=== PATIENT | female | born 1990 | race Caucasian/White ===

== ENCOUNTER → 2017-09-28 | Outpatient (CLI) | payer BC ==
[~2017-09-28] MED LIST: ADDER PO; BCPILLS PO
== END | disposition home or self-care (01) ==
LOC: C.PAPS 11:17
PROVIDERS: ATTEND Obstetrics & Gynecology
DX: Z01.419 Encounter for gynecological examination (general) (routine) without abnormal findings (principal)

== ENCOUNTER 2020-10-01 07:57 | Inpatient (IN) ==
[2020-10-01] MEDS ORDERED: OXYTOCIN 30 UNITS/500 ML BAG IV PRN ×3 (08:29→17:21)
--- NOTE | 2020-10-01 08:31 | History & Physical Report ---
Date of Service October 01, 2020 Assessment & Plan (1) with 39 completed weeks gestation: (2) Rupture of membranes with clear amniotic fluid: fetus category one. discussed expectant management vs starting pit now as rom for 3hours. considering . Discussed need for pit if expectant management and no change. gbs negative. anticipate . History of Present Illness Chief Complaint: rom Primary Care Provider: NO PCP Patient is a 30yowf with iup at 39 weeks who presents to labor and delivery wt rom at 5:45, copious clear. Minimal contractions. no vb. +fm. uncomplicated labs--A+/ab-ri/rprnr/hepb-/hiv-/gc/ct-/gtt x 2 nl/ panorama low risk/ afp neg/ gbs negative. Allergies Allergy/AdvReac Type Severity Reaction Status Date / Time No Known Allergies Allergy Verified 09/25/20 11:46 Home Medications Medication Instructions Recorded Confirmed Type lorazepam 2 mg tablet mg PO 02/19/20 09/25/20 History prenat.vits,annette,toz-rghy-feeda 1 tab PO DAILY 02/19/20 09/25/20 History breast pump #1 ea 08/16/20 09/25/20 Rx Patient History Medical History (Updated 10/01/20 @ 08:37 by Shobha Hall MD, FACOG) Abnormal biochemical finding on screening of mother ADHD Encounter for anatomic survey HGSIL (high grade squamous intraepithelial dysplasia) Varicella Surgical History H/O LEEP H/O nasal septoplasty H/O oral surgery Status post colposcopy Family History (Updated 02/19/20 @ 15:11 by Dacia Fuller) Grandmother (Maternal) Breast cancer Grandfather (Paternal) Hypertension Grandfather (Maternal) Hypertension Social History (Updated 02/19/20 @ 15:12 by Dacia Fuller) Smoking Status: Never smoker Hx Alcohol Use: No Hx Substance Use: No marital status: marital status details: Doc Tello (31) [phone] Current Living Situation: Spouse Current Living Situation Comment: lives with spouse, 2 dogs current occupational status: employed current occupation: Associate Manager [employer] History g1--present MAILROOM CLERK History hx of leep in 2013, no stds Review of Systems All systems reviewed & are unremarkable except as noted in HPI & below Physical Exam Constitutional: WD/WN, vitals as above Gastrointestinal (Abdomen): soft, nt, nd. gravid Psychiatric: A+Ox3, euthymic affect Genitourinary: sse--+nitrazine and pool cx--ft/90/-2 toco--rare contraction efm--140s with mod variability, accels present, no decels Results & Data ([facility]) Vital Signs (Past 12 Hours) Vital Signs Pulse BP 10/01/20 08:05 106 H 118/73 Code Status & VTE Plan VTE Prophylaxis Plan VTE Prophylaxis will be ordered: No Coding Level of Care Code None Diagnoses with 39 completed weeks gestation Z3A.39 Rupture of membranes with clear amniotic fluid
[2020-10-01 09:06] LABS: Hemoglobin 13.1 g/dL (12.0-16.0); Mean Corpuscular Hemoglobin 31.2 pg (25-34); Mean Corpuscular Hgb Conc 34.5 g/dL (32-36); Mean Corpuscular Volume 90.5 fL (80-100); Mean Platelet Volume 10.4 fL (7.4-10.4); Platelet Count 342 K/uL (130-400); RDW Coefficient of Variation 13.7 % (11.5-14.5); White Blood Count 10.92 K/uL (4.8-10.8)
[2020-10-01] MEDS: LACTATED RINGER'S 1,000 ML IV PRN ×2 (09:25→12:17)
[2020-10-01] MEDS ORDERED: fentaNYL citrate 100 MCG/2 ML VIAL ONE (11:26)
[2020-10-01] MEDS ORDERED: ePHEDrine sulfate 50 MG/ML AMP ONE (11:26)
[2020-10-01] MEDS ORDERED: SODIUM CHLORIDE 0.9% INJ 10 ML VIAL ONE (11:26)
[2020-10-01] MEDS ORDERED: BUPIVACAINE 0.25% 30 ML VIAL ONE (11:26)
[2020-10-01] MEDS ORDERED: fentaNYL 2MCG/ML ROPIVACAINE 1.25MG/ML 100 ML BAG EPI ONE (11:26)
--- NOTE | 2020-10-01 11:38 | Anesthesiology Consultation ---
Date of Service October 01, 2020 Assessment & Plan (1) Encounter for pre-operative examination: Chart Review Chart Review: Acceptable Risk for Labor Epidural (COVID pending) History Height/Weight Height: 5 ft 7 in Weight: 93.894 kg Allergies Allergy/AdvReac Type Severity Reaction Status Date / Time No Known Allergies Allergy Verified 10/01/20 09:52 Medications Home Medications Medication Instructions Recorded Confirmed Last Taken prenat.vits,annette,rmt-ympj-dgjgl 1 tab PO DAILY 02/19/20 10/01/20 09/30/20 20:00 breast pump #1 ea 08/16/20 09/25/20 Unknown Active Medications Generic Name Dose Route Start Last Admin Trade Name Freq PRN Reason Stop Dose Admin Lactated Ringer's 1,000 mls @ 125 mls/hr 10/01/20 08:29 10/01/20 09:25 Lr IV 10/03/20 08:28 125 mls/hr .Q8H PRN Administration L&D Protocol Protocol Oxytocin 30 units in 500 mls @ 6 mls/hr 10/01/20 09:02 10/01/20 10:05 Pitocin IV 10/03/20 09:01 0.36 units/hr .Q24H PRN 6 mls/hr Labor Induction/Augmentation Titration Protocol 0.36 UNITS/HR Past Medical History Medical History Abnormal biochemical finding on screening of mother ADHD Encounter for anatomic survey HGSIL (high grade squamous intraepithelial dysplasia) Varicella Past Family History Family History Grandmother (Maternal) Breast cancer Grandfather (Paternal) Hypertension Grandfather (Maternal) Hypertension Past Surgical History Surgical History H/O LEEP H/O nasal septoplasty H/O oral surgery Status post colposcopy Social History Smoking Status: Never smoker Hx Alcohol Use: No Hx Substance Use: No substance use type: does not use Physical Exam Vital Signs Last Vital Signs Temp 36.4 C L 10/01/20 10:04 Pulse 95 H 10/01/20 11:09 Resp 18 10/01/20 10:04 BP 110/64 10/01/20 10:04 Pulse Ox 75 L 10/01/20 11:09 Testing Laboratory Results 10/01/20 08:38
[2020-10-01] MEDS ORDERED: ONDANSETRON INJ 2 MG/ML 2 ML VIAL IV PRN (12:11)
[2020-10-01] MEDS ORDERED: fentaNYL 2MCG/ML ROPIVACAINE 1.25MG/ML 100 ML BAG EPI PRN (12:11)
[2020-10-01] MEDS ORDERED: NALOXONE HCL 1 MG in SODIUM CHLORIDE 0.9% 1000ML 1,000 ML IV PRN (12:11)
[2020-10-01] MEDS ORDERED: NALOXONE HCL 0.4 MG/1 ML VIAL/CARP IV PRN (12:11)
[2020-10-01] MEDS ORDERED: ePHEDrine sulfate 50 MG/ML AMP IV PRN (12:11)
--- NOTE | 2020-10-01 15:32 | Labor Progress Brief Note ---
Date of Service October 01, 2020 Subjective Patient was very comfortable for awhile with epidural but starting to get some discomfort. Assessment & Plan (1) with 39 completed weeks gestation: Admission and Anticipated Discharge Date Admission Date: October 01, 2020 Fetus overall reassuring. Will begin second stage. Anticipate . Physical Exam 2 Constitutional: WD/WN, vitals as above Psychiatric: A+Ox3, euthymic affect Genitourinary: cx--c/c/+1 toco--q2-4min, pit at 2 efm--currently 150s with mod variability, accels to 170s, has had a few decels to the 80s, mostly variables that have resolved with position change and stopping the pit once. Results & Data ([facility]) Vital Signs (Past 12 Hours) Vital Signs Temp Pulse Resp BP Pulse Ox 10/01/20 15:23 97 H 99 10/01/20 15:18 91 H 99 10/01/20 15:14 92 H 114/74 10/01/20 15:13 85 99 10/01/20 15:08 83 99 10/01/20 15:03 85 99 10/01/20 14:59 83 110/62 10/01/20 14:58 87 98 10/01/20 14:53 84 99 10/01/20 14:48 90 100 10/01/20 14:44 75 120/76 10/01/20 14:43 76 100 10/01/20 14:38 80 100 10/01/20 14:33 83 100 10/01/20 14:29 86 128/87 10/01/20 14:28 87 100 10/01/20 14:23 91 H 99 10/01/20 14:18 99 H 100 10/01/20 14:14 94 H 137/83 10/01/20 14:13 95 H 100 10/01/20 14:08 92 H 100 10/01/20 14:03 88 99 10/01/20 14:00 82 20 124/73 10/01/20 13:58 81 99 10/01/20 13:53 87 100 10/01/20 13:48 89 100 10/01/20 13:45 74 127/76 10/01/20 13:43 75 99 10/01/20 13:38 90 99 10/01/20 13:33 90 100 10/01/20 13:30 84 138/71 10/01/20 13:29 16 10/01/20 13:28 83 99 10/01/20 13:23 70 98 10/01/20 13:18 89 99 10/01/20 13:15 88 131/69 10/01/20 13:13 91 H 100 10/01/20 13:08 81 98 10/01/20 13:03 80 100 10/01/20 12:59 75 123/76 10/01/20 12:58 77 99 10/01/20 12:53 81 100 10/01/20 12:48 76 99 10/01/20 12:43 78 121/73 99 10/01/20 12:40 85 115/67 10/01/20 12:38 93 H 99 10/01/20 12:33 82 119/81 98 10/01/20 12:28 95 H 105/58 L 98 10/01/20 12:23 89 121/80 99 10/01/20 12:18 94 H 99 10/01/20 12:15 37.1 C 100 H 16 108/62 10/01/20 12:13 85 106/59 L 99 10/01/20 12:11 82 106/60 10/01/20 12:10 75 110/63 10/01/20 12:08 83 98 10/01/20 12:03 87 99 10/01/20 11:58 94 H 100 10/01/20 11:53 96 H 100 10/01/20 11:09 95 H 75 L 10/01/20 10:04 36.4 C L 89 18 110/64 10/01/20 08:13 36.8 C 20 10/01/20 08:05 106 H 118/73 Coding Level of Care Code None Diagnoses with 39 completed weeks gestation Z3A.39
--- NOTE | 2020-10-01 16:24 | Labor Progress Brief Note ---
Date of Service October 01, 2020 Subjective Pushing with good effort Assessment & Plan (1) Rupture of membranes with clear amniotic fluid: Admission and Anticipated Discharge Date Admission Date: October 01, 2020 making good progress, fetus category two with variables but reassuring. moving baby well. pushing for 40 min. anticipate . Physical Exam Constitutional: WD/WN, vitals as above Psychiatric: A+Ox3, euthymic affect Genitourinary: cx--c/c/+2, small amount of caput noted with labia toco--q2-3min efm--160s with mod variability, variables with pushing. Results & Data ([facility]) Vital Signs (Past 12 Hours) Vital Signs Temp Pulse Resp BP Pulse Ox 10/01/20 16:20 106 H 91 10/01/20 16:18 101 H 98 10/01/20 16:15 93 H 131/60 10/01/20 16:13 139 H 97 10/01/20 16:08 129 H 98 10/01/20 16:03 91 H 99 10/01/20 15:59 36.8 C 101 H 20 120/58 L 81 L 10/01/20 15:58 80 99 10/01/20 15:53 132 H 95 10/01/20 15:48 95 H 99 10/01/20 15:45 88 130/60 10/01/20 15:43 105 H 99 10/01/20 15:40 114 H 89 L 10/01/20 15:38 105 H 98 10/01/20 15:33 105 H 99 10/01/20 15:29 93 H 124/74 10/01/20 15:28 95 H 98 10/01/20 15:23 97 H 99 10/01/20 15:18 91 H 99 10/01/20 15:14 92 H 114/74 10/01/20 15:13 85 99 10/01/20 15:08 83 99 10/01/20 15:03 85 99 10/01/20 14:59 83 18 110/62 10/01/20 14:58 87 98 10/01/20 14:53 84 99 10/01/20 14:48 90 100 10/01/20 14:44 75 120/76 10/01/20 14:43 76 100 10/01/20 14:38 80 100 10/01/20 14:33 83 100 10/01/20 14:29 86 128/87 10/01/20 14:28 87 100 10/01/20 14:23 91 H 99 10/01/20 14:18 99 H 100 10/01/20 14:14 94 H 137/83 10/01/20 14:13 95 H 100 10/01/20 14:08 92 H 100 10/01/20 14:03 88 99 10/01/20 14:00 82 20 124/73 10/01/20 13:58 81 99 10/01/20 13:53 87 100 10/01/20 13:48 89 100 10/01/20 13:45 74 127/76 10/01/20 13:43 75 99 10/01/20 13:38 90 99 10/01/20 13:33 90 100 10/01/20 13:30 84 138/71 10/01/20 13:29 16 10/01/20 13:28 83 99 10/01/20 13:23 70 98 10/01/20 13:18 89 99 10/01/20 13:15 88 131/69 10/01/20 13:13 91 H 100 10/01/20 13:08 81 98 10/01/20 13:03 80 100 10/01/20 12:59 75 123/76 10/01/20 12:58 77 99 10/01/20 12:53 81 100 10/01/20 12:48 76 99 10/01/20 12:43 78 121/73 99 10/01/20 12:40 85 115/67 10/01/20 12:38 93 H 99 10/01/20 12:33 82 119/81 98 10/01/20 12:28 95 H 105/58 L 98 10/01/20 12:23 89 121/80 99 10/01/20 12:18 94 H 99 10/01/20 12:15 37.1 C 100 H 16 108/62 10/01/20 12:13 85 106/59 L 99 10/01/20 12:11 82 106/60 10/01/20 12:10 75 110/63 10/01/20 12:08 83 98 10/01/20 12:03 87 99 10/01/20 11:58 94 H 100 10/01/20 11:53 96 H 100 10/01/20 11:09 95 H 75 L 10/01/20 10:04 36.4 C L 89 18 110/64 10/01/20 08:13 36.8 C 20 10/01/20 08:05 106 H 118/73 Coding Level of Care Code None Diagnoses Rupture of membranes with clear amniotic fluid
[2020-10-01] MEDS ORDERED: oxyCODONE/ACETAMINOPHEN 5mg/325mg TAB PO PRN (17:03)
[2020-10-01] MEDS ORDERED: ACETAMINOPHEN 325 MG TAB PO PRN (17:03)
--- NOTE | 2020-10-01 17:07 | Delivery Summary ---
Vaginal Delivery Summary Date of Service October 01, 2020 Pre-operative Diagnosis: at 39 weeks prom Post-operative Diagnosis: same Procedure: pitocin augmentation epidural second degree lac and repair EBL: 350cc Anesthesia: epidural Procedure: The patient pushed for about one hour to deliver a viable male infant in javi position. The rest of the infant was then delivered without difficulty. The baby was vigorous. The nose and mouth were bulb suctioned and the was placed in the maternal abdomen for drying and attention. Cord was clamped and cut at one minute of life. Cord blood and segment obtained. Placenta delivered spontaneous, intact with a three vessel cord. Cervix/sulci/rectum were intact. A second degree perineal laceration was repaired in the normal standard fashion. Hemostasis obtained with dilute pitocin and fundal massage. Apgars were 8/9. Mother and baby doing well at the end of the delivery. Vaginal Delivery Summary and 2nd Degree [facility] Vaginal Delivery Charge Vaginal Delivery Codes: 37408 global code for the antepartum, delivery, and post-
[2020-10-01] MEDS ORDERED: SUPERCREAM 0.870% 15 GM JAR EXT PRN (17:21)
[2020-10-01] MEDS ORDERED: HYDROCORTISONE ACETATE 25 MG SUPP PR PRN (17:21)
[2020-10-01] MEDS ORDERED: BENZOCAINE 20% AER SPR 82.5 GM CAN EXT PRN (17:21)
[2020-10-01] MEDS ORDERED: DIPHTHERIA/TETANUS/PERTUSSIS 0.5 ML SYR/VIAL IM ONE (17:21)
[2020-10-01] MEDS ORDERED: bisacodyL 10 MG SUPP PR PRN (17:21)
--- NOTE | 2020-10-01 18:16 | Anesthesia Procedure Note ---
Date of Service October 01, 2020 Anesthesia Post Epidural Note Vital Signs Vital Signs: Temp Pulse Resp BP Pulse Ox 36.8 C 87 20 121/67 98 10/01/20 15:59 10/01/20 18:14 10/01/20 15:59 10/01/20 18:14 10/01/20 16:58 Notes Mental Status: alert / awake / arousable and participated in evaluation Nausea / Vomiting: adequately controlled Pain: adequately controlled Airway Patency, RR, SpO2: stable & adequate BP & HR: stable & adequate Hydration State: stable & adequate Neuraxial Anesthesia: was administered and sensory block is resolving Anesthetic Complications: no major complications apparent Epidural: Removed without complications and With tip intact
[2020-10-01] MEDS: DOCUSATE SODIUM 100 MG CAP PO SCH (21:13)
[2020-10-01] MEDS: IBUPROFEN 600 MG TAB PO PRN (21:13)
[2020-10-02] MEDS: IBUPROFEN 600 MG TAB PO PRN ×4 (01:00→19:56)
--- NOTE | 2020-10-02 05:58 | Obstetrical Progress Note ---
Date of Service <Galdino Villanueva MD - Last Filed: 10/02/20 07:40> October 02, 2020 Assessment & Plan <Galdino Villanueva MD - Last Filed: 10/02/20 07:40> (1) state: 30 y/o s/p on 10/01/20 at 39w. A+. Rubella immune. Stable. hx HGSIL s/p LEEP. Normal pap 02/27/20. - Meeting milestones. Ambulating, eating, voiding. + flatus, no BM. - borderline tachycardia, 90s. - - pain controlled - WBC 10.92->14.93. No symptoms of infection. Will continue monitoring for such. - Hb 13.1->12.0, appropriate. - continue routine care - dispo tomorrow Subjective <Galdino Villanueva MD - Last Filed: 10/02/20 07:40> Ambulation: ambulating normally Voiding: no voiding problems Passing Gas:: Yes Diet Tolerance:: regular diet Lochia:: Moderate Feeding Type:: breast feeding Current Pain Level(1-10): 0 Doing well. Mild abd cramping, 2/10 intensity currently. Received ibuprofen x2 overnight w/ relief. + flatus, no BM yet. Mild discomfort w/ urination. Feels comfortable with dispo home either today or tomorrow. Review of Systems Denies fever, chills, sweats Denies shortness of breath, chest pain, palpitations. Denies breast pain. Denies headache or changes in vision. Denies nausea/vomiting. Denies numbness, tingling, weakness. Physical Exam <Galdino Villanueva MD - Last Filed: 10/02/20 07:40> General: Alert, oriented. No acute distress. Cardiac: Regular rate and rhythm, no murmurs/rubs/gallops. Respiratory: Clear to auscultation bilaterally, no wheezes/rales/rhonchi. No respiratory distress. Abdomen: , soft, nontender. Uterus: Please see attending documentation. Lower Extremities: Trace pedal edema. No deep calf pain. Diego's negative bilaterally. Results & Data ([facility]) <Galdino Villanueva MD - Last Filed: 10/02/20 07:40> Vital Signs (Past 12 Hours) Vital Signs Temp Pulse Pulse Resp BP BP Pulse Ox 10/02/20 04:20 36.5 C 99 H 18 126/80 96 10/02/20 00:20 36.7 C 97 H 16 119/74 97 10/01/20 20:45 36.7 C 83 17 111/73 98 10/01/20 19:44 96 H 119/66 10/01/20 19:29 109 H 114/68 10/01/20 19:14 105 H 107/58 L 10/01/20 19:00 36.8 C 18 10/01/20 18:59 118 H 126/69 10/01/20 18:44 96 H 128/64 10/01/20 18:29 86 114/58 L 10/01/20 18:14 87 121/67 10/01/20 17:59 100 H 120/57 L Medications Administered <Shobha Hall MD, FACOG - Last Filed: 10/02/20 07:41> Co-Signing Physician Notes Resident Physician Supervision Note: I interviewed and examined the patient. Discussed with Dr. Villanueva and agree with findings and plan as documented in the note. Any exceptions or clarifications a re listed here: Patient doing well. cbc is normal. Progressing normally, no concerns. Documented By: Shobha Hall MD, FACOG
[2020-10-02 06:11] LABS: Hematocrit (blood only) 35.1 % (37-47); Mean Corpuscular Hemoglobin 31.3 pg (25-34); Mean Corpuscular Hgb Conc 34.2 g/dL (32-36); Mean Corpuscular Volume 91.4 fL (80-100); Mean Platelet Volume 10.2 fL (7.4-10.4); Platelet Count 293 K/uL (130-400); RDW Standard Deviation 46.6 fL (36.4-46.3); Red Blood Count 3.84 M/uL (4.2-5.4); White Blood Count 14.93 K/uL (4.8-10.8)
[2020-10-02] MEDS: DOCUSATE SODIUM 100 MG CAP PO SCH ×2 (08:18→20:44)
[2020-10-02] MEDS: PRENATAL VITAMIN 1 TAB PO SCH (08:18)
[2020-10-02] MEDS ORDERED: bisacodyL 5 MG TABEC PO SCH (20:00)
[2020-10-03 00:59] VITALS: O2SAT 98
--- NOTE | 2020-10-03 05:06 | Obstetrical Progress Note ---
Date of Service <Galdino Villanueva MD - Last Filed: 10/03/20 07:01> October 03, 2020 Assessment & Plan <Galdino Villanueva MD - Last Filed: 10/03/20 07:01> (1) state: 30 y/o s/p on 10/01/20 at 39w, PPD2. A+. Rubella immune. Stable. hx HGSIL s/p LEEP. Normal pap 02/27/20. - Meeting milestones. Ambulating, eating, voiding, +BM. - pain is minimal - ok - continue routine care - tentative dispo home today Subjective <Galdino Villanueva MD - Last Filed: 10/03/20 07:01> Ambulation: ambulating normally Voiding: no voiding problems Passing Gas:: Yes Diet Tolerance:: regular diet Lochia:: Small (small-moderate) Feeding Type:: breast feeding Current Pain Level(1-10): 1 No complaints today other than some generalized soreness. Pain level 1-2/10. ok, improving. Comfortable w/ dispo. Review of Systems Denies fever, chills, sweats Denies shortness of breath, chest pain, palpitations. Denies breast pain. Denies dysuria. Denies headache or changes in vision. Denies nausea/vomiting. Denies numbness, tingling, weakness. Physical Exam <Galdino Villanueva MD - Last Filed: 10/03/20 07:01> General: Alert, oriented. No acute distress. Cardiac: Regular rate and rhythm, no murmurs/rubs/gallops. Respiratory: Clear to auscultation bilaterally, no wheezes/rales/rhonchi. No respiratory distress. Abdomen: , soft, nontender. Uterus: Uterine fundus firm, palpable 1cm below umbilicus. Lower Extremities: Trace LE edema. No deep calf pain. Diego's negative bilaterally. Results & Data ([facility]) <Galdino Villanueva MD - Last Filed: 10/03/20 07:01> Vital Signs (Past 12 Hours) Vital Signs Temp Pulse Resp BP Pulse Ox 10/03/20 00:05 36.6 C 90 17 130/77 98 10/02/20 19:35 36.7 C 84 16 111/74 97 Medications Administered <Rosaura Donaldson MD, FACOG - Last Filed: 10/03/20 07:45> Co-Signing Physician Notes Resident Physician Supervision Note: I was present with Dr. Villanueva during the history and exam. I discussed the case with the resident and agree with the findings and plan as documented in the note. Any exceptions or clarifications are listed here: doing well, day #2 pp. eating, voiding, ambulating, ready for discharge, instructions reviewed, f/u 6 wk pp check. Documented By: Rosaura Donaldson MD, FACOG Resident Activity Tracking <Galdino Villanueva MD - Last Filed: 10/03/20 07:01> Resident Involvement: Resident Care Provided Care Provided: OB Delivery
[2020-10-03] MEDS: PRENATAL VITAMIN 1 TAB PO SCH (09:22)
[2020-10-03] MEDS: DOCUSATE SODIUM 100 MG CAP PO SCH (09:22)
[2020-10-03] MEDS: IBUPROFEN 600 MG TAB PO PRN (09:24)
[2020-10-03 09:58] VITALS: BP 125/81; PULSE 97; TEMP 97.3
== END 2020-10-03 13:10 | disposition home or self-care (01) | DRG 807 ==
LOC: OPB 07:57 → 4S1 08:01 → 4S2 20:10 → UNDODISIN 10-03 13:10

== ENCOUNTER 2023-01-19 00:49 | Inpatient (IN) ==
[2023-01-19] MEDS ORDERED: LIDOCAINE 1% LOCAL 20 ML VIAL INFIL PRN (01:13)
[2023-01-19] MEDS ORDERED: LACTATED RINGER'S 1,000 ML IV PRN (01:13)
[2023-01-19] MEDS ORDERED: fentaNYL 2MCG/ML ROPIVACAINE 1.25MG/ML 100 ML BAG EPI PRN (01:40)
[2023-01-19] MEDS ORDERED: NALBUPHINE HCL INJ 10 MG/ML AMP IV PRN (01:40)
[2023-01-19] MEDS ORDERED: NALOXONE HCL 1 MG in SODIUM CHLORIDE 0.9% 1000ML 1,000 ML IV PRN (01:40)
[2023-01-19] MEDS ORDERED: diphenhydrAMINE 50 MG/ML VIAL IV PRN (01:40)
[2023-01-19] MEDS ORDERED: ePHEDrine sulfate 50 MG/ML AMP IV PRN (01:40)
[2023-01-19] MEDS ORDERED: ONDANSETRON INJ 2 MG/ML 2 ML VIAL IV PRN (01:40)
[2023-01-19] MEDS ORDERED: NALOXONE HCL 0.4 MG/1 ML VIAL/CARP IV PRN (01:40)
--- NOTE | 2023-01-19 01:40 | Anesthesiology Consultation ---
Date of Service January 19, 2023 Assessment & Plan Chart Review Chart Review: Acceptable Risk for Surgery and Patient NOT seen in Pre Admission Testing ASA ASA2 Proposed Anesthesia Anesthesia Type: Labor Epidural Risk / Benefits Reviewed With: PT / POA / Parent / Guardian, Accepts Plan and Informed Consent Obtained History Height/Weight Height: 5 ft 7 in Weight: 96.162 kg Allergies Allergy/AdvReac Type Severity Reaction Status Date / Time dog dander Allergy Congested Verified 01/18/23 13:35 house dust mite Allergy Congested Verified 01/18/23 13:35 pollen extracts Allergy Congested Verified 01/18/23 13:35 Medications Home Medications Medication Instructions Recorded Confirmed Last Taken prenat.vits,annette,wij-qdxz-dofin 1 tab PO DAILY 02/19/20 01/19/23 01/17/23 breast pump #1 ea 11/10/22 01/18/23 Unknown Past Medical History Medical History Abnormal biochemical finding on screening of mother ADHD Anxiety Encounter for anatomic survey Encounter for pre-operative examination Encounter for routine gynecological examination HGSIL (high grade squamous intraepithelial dysplasia) Multiple allergies with 39 completed weeks gestation Rupture of membranes with clear amniotic fluid Supervision of normal intrauterine in primigravida Varicella Exercise / Class Metabolic Activity II 4-5 Yardwork/Stairs/Walk up hill Past Family History Family History Grandmother (Maternal) Breast cancer Grandfather (Paternal) Hypertension Grandfather (Maternal) Hypertension Father Melanoma Past Surgical History Surgical History H/O LEEP H/O nasal septoplasty H/O oral surgery Status post colposcopy Past Anesthesia History No Hx of Anesthesia Complications and No Family Hx of Anesthesia Complications History of PONV No Hx of PONV and No Hx of Motion Sickness Social History Smoking Status: Never smoker Hx Alcohol Use: No Hx Substance Use: No substance use type: does not use Review of Systems denies fever/cough/ colds/ chest pain/ SOB/ ANGEL denies ANGEL Physical Exam Vital Signs Last Vital Signs Temp 36.8 C 01/19/23 01:08 Pulse 113 H 01/19/23 01:08 Resp 18 01/19/23 01:08 BP 127/58 L 01/19/23 01:08 ENMT Mouth: no TMJ abnormality and no dentition abnormality Thyromental Distance: > or= 3.5 Finger Breadths Mallampati Class: II Neck neck extension not limited Respiratory normal respiratory effort; no respiratory distress Auscultation: lungs clear to auscultation bilaterally Cardiovascular Rate/Rhythm: regular rate and regular rhythm Neurologic moves all extremities Psychiatric Orientation: alert and oriented x 3
[2023-01-19] MEDS ORDERED: ePHEDrine sulfate 50 MG/ML AMP ONE (01:41)
[2023-01-19] MEDS ORDERED: LIDOCAINE 2%/EPINEPHRINE 1:200,000 20 ML PF ONE (01:42)
[2023-01-19] MEDS ORDERED: SODIUM CHLORIDE 0.9% PF INJ 10 ML VIAL ONE (01:42)
[2023-01-19] MEDS ORDERED: BUPIVACAINE 0.25% PF 30 ML VIAL ONE (01:42)
[2023-01-19] MEDS ORDERED: fentaNYL citrate PF 100 MCG/2 ML VIAL ONE (01:42)
[2023-01-19] MEDS ORDERED: fentaNYL 2MCG/ML ROPIVACAINE 1.25MG/ML 100 ML BAG EPI ONE (01:43)
[2023-01-19 01:57] LABS: Hematocrit (blood only) 36.8 % (37.0-47.0); Hemoglobin 12.4 g/dl (12.0-16.0); Mean Corpuscular Hemoglobin 30.2 pg (25.0-34.0); Mean Corpuscular Hgb Conc 33.7 g/dL (32.0-36.0); Mean Corpuscular Volume 89.8 fL (80.0-100.0); Mean Platelet Volume 9.6 fL (9.4-12.4); Platelet Count 310 K/uL (130-400); RDW Coefficient of Variation 13.3 % (11.5-14.5); RDW Standard Deviation 43.5 fL (36.4-46.3); White Blood Count 14.21 K/ul (4.8-10.8)
--- NOTE | 2023-01-19 04:01 | History & Physical Report ---
Date of Service January 19, 2023 Assessment & Plan (1) Active labor at term: Plan pt was admitted, had iv and labs and epidural. begin 2nd stage. fhts categ 2, now categ 1, only occas variable. Admission and Anticipated Discharge Date Admission Date: January 19, 2023 History of Present Illness Chief Complaint: regular ctx Primary Care Provider: NO PCP 32yo at 39+wks ega presents to L&D with above cc. Regular contractions began about 830pm 10 and got closer and stronger. No rom. No vb. Arrived at L&D and was 5cm with regular ctx pattern requesting epidural. Comfortable now and per nurse anterior lip. PNC uncomplicated PNL rh pos, ri, gbs neg OBH: sab x 1, x 1 GYNH: nl pap, no stds, h/o LEEP 2012 Allergies Allergy/AdvReac Type Severity Reaction Status Date / Time dog dander Allergy Congested Verified 01/18/23 13:35 house dust mite Allergy Congested Verified 01/18/23 13:35 pollen extracts Allergy Congested Verified 01/18/23 13:35 Home Medications Medication Instructions Recorded Confirmed Type prenat.vits,annette,ecx-vmvg-jywow 1 tab PO DAILY 02/19/20 01/19/23 History breast pump #1 ea 11/10/22 01/18/23 Rx Patient History Medical History Abnormal biochemical finding on screening of mother ADHD Anxiety Encounter for anatomic survey Encounter for pre-operative examination Encounter for routine gynecological examination HGSIL (high grade squamous intraepithelial dysplasia) Multiple allergies with 39 completed weeks gestation Rupture of membranes with clear amniotic fluid Supervision of normal intrauterine in primigravida Varicella Surgical History H/O LEEP H/O nasal septoplasty H/O oral surgery Status post colposcopy Family History Grandmother (Maternal) Breast cancer Grandfather (Paternal) Hypertension Grandfather (Maternal) Hypertension Father Melanoma Social History (Updated 06/10/22 @ 14:38 by Sylvia Thompson) Smoking Status: Never smoker Hx Alcohol Use: No Hx Substance Use: No Preferred Language: Czech Communication Ability: Effective Buyer Internship Required: No Beliefs That Will Affect Care: None marital status: marital status details: Doc Tello (34) [phone] Current Living Situation: Spouse and Family Current Living Situation Comment: lives with spouse, child, 1 dog. current occupational status: employed current occupation: [employer]r [employer] Other Information That Helps Us Care for You: No Feels Safe at Home: Yes Safety Concerns: Afraid for Self Assistive Devices: None Review of Systems as per Subjective / HPI Physical Exam Constitutional: WD/WN, vitals as above Gastrointestinal (Abdomen): soft gravid nt Musculoskeletal: no edema nontender calves Neurologic: grossly normal Psychiatric: A+Ox3, euthymic affect Genitourinary: Manual OB Exam: + cervical dilation 10 cm, + cervical effacement 100%, + station + 2 and + amniotic fluid (arom) clear OB Exam Monitor Tracing: + external FHT monitor used, + external uterine monitor used (q2), + category II and + normal FHT variability Results & Data Vital Signs (Past 12 Hours) Vital Signs Temp Pulse Resp BP Pulse Ox 01/19/23 01:08 98.2 F 18 01/19/23 03:53 125 H 100 01/19/23 03:49 120 H 113/66 01/19/23 03:48 111 H 99 01/19/23 03:43 114 H 100 01/19/23 03:38 107 H 100 01/19/23 03:33 103 H 99/56 L 99 01/19/23 03:28 88 98 01/19/23 03:23 87 98 01/19/23 03:19 97 H 101/58 L 01/19/23 03:18 92 H 99 01/19/23 03:13 93 H 99 01/19/23 03:08 102 H 99 01/19/23 03:04 97 H 103/56 L 01/19/23 03:03 94 H 100 01/19/23 02:58 94 H 100 01/19/23 02:55 113 H 92 01/19/23 02:53 104 H 100 01/19/23 02:50 102 H 89 L 01/19/23 02:48 97 H 117/67 100 01/19/23 02:43 97 H 100 01/19/23 02:38 90 99 01/19/23 02:33 95 H 98 01/19/23 02:34 99 H 121/62 01/19/23 02:28 99 H 99 01/19/23 02:23 99 H 100 01/19/23 02:18 100 H 121/62 98 01/19/23 02:16 100 H 125/66 01/19/23 02:14 100 H 125/69 01/19/23 02:13 96 H 100 01/19/23 02:12 93 H 127/65 01/19/23 02:10 93 H 131/63 01/19/23 02:08 113 H 98 01/19/23 02:03 105 H 98 01/19/23 01:58 112 H 98 01/19/23 01:08 113 H 127/58 L Coding Level of Care Code None Diagnoses Active labor at term
[2023-01-19] MEDS ORDERED: OXYTOCIN 30 UNITS/500 ML BAG IV PRN ×2 (04:39→05:20)
--- NOTE | 2023-01-19 04:49 | Delivery Summary ---
Vaginal Delivery Summary Date of Service January 19, 2023 Vaginal Delivery Summary and 2nd Degree LAC The patient dilated to complete and pushed to deliver a viable male infant Apgars 8 and 9 via over 2nd degree perineal laceration. Mouth and nose bulb suctioned at perineum. Loose nuchal x 1 reduced. Shoulders and body delivered with ease. was vigorous and crying at . Cord clamped at 30 seconds of life and to maternal abdomen where the cord was then doubly clamped and cut. Placenta delivered spontaneously and intact, three-vessel cord. Hemostasis achieved with dilute pitocin and uterine massage and drainage of the bladder for approximately 300 cc under sterile conditions. Cervix and sulci intact. Laceration repaired in layers in typical fashion with 3-0 vicryl. EBL 300 cc. Mother and baby stable in recovery. [facility] [place] Delivery Type Details: and 2nd Degree LAC
[2023-01-19] MEDS ORDERED: bisacodyL 10 MG SUPP PR PRN (05:20)
[2023-01-19] MEDS ORDERED: oxyCODONE/ACETAMINOPHEN 5mg/325mg TAB PO PRN (05:20)
[2023-01-19] MEDS ORDERED: HYDROCORTISONE ACETATE 25 MG SUPP PR PRN (05:20)
[2023-01-19] MEDS ORDERED: BENZOCAINE 20% AER SPR 82.5 GM CAN EXT PRN (05:20)
[2023-01-19] MEDS ORDERED: DIPHTHERIA/TETANUS/PERTUSSIS 0.5mL SYR/VIAL (Age 7+yrs) IM ONE (05:20)
[2023-01-19] MEDS ORDERED: ACETAMINOPHEN 325 MG TAB PO PRN (05:20)
--- NOTE | 2023-01-19 05:50 | Anesthesia Procedure Note ---
Date of Service January 19, 2023 Anesthesia Post Epidural Note Vital Signs Vital Signs: Temp Pulse Resp BP Pulse Ox 37.0 C 100 H 18 112/61 97 01/19/23 05:05 01/19/23 05:36 01/19/23 05:35 01/19/23 05:36 01/19/23 04:43 Notes Mental Status: alert / awake / arousable and participated in evaluation Nausea / Vomiting: adequately controlled Pain: adequately controlled Airway Patency, RR, SpO2: stable & adequate BP & HR: stable & adequate Hydration State: stable & adequate Neuraxial Anesthesia: was administered and sensory block is resolving Anesthetic Complications: no major complications apparent and Pt Satisfied with anesthetic care Epidural: Removed without complications and With tip intact
[2023-01-19] MEDS: OXYTOCIN 20 UNITS in LACTATED RINGER'S 1,000 ML IV SCH ×2 (06:38→23:24)
[2023-01-19] MEDS ORDERED: ONDANSETRON 4 MG OD TAB PO PRN (07:26)
[2023-01-19] MEDS: PRENATAL VITAMIN 1 TAB PO SCH (08:37)
[2023-01-19] MEDS: IBUPROFEN 600 MG TAB PO PRN ×3 (08:37→19:54)
[2023-01-19] MEDS: DOCUSATE SODIUM 100 MG CAP PO SCH ×2 (08:37→19:53)
[2023-01-20] MEDS: IBUPROFEN 600 MG TAB PO PRN ×2 (03:36→07:29)
[2023-01-20] MEDS: OXYTOCIN 20 UNITS in LACTATED RINGER'S 1,000 ML IV SCH (05:26)
--- NOTE | 2023-01-20 05:50 | Obstetrical Progress Note ---
Date of Service January 20, 2023 Assessment & Plan (1) Active labor at term: (2) Supervision of normal intrauterine in multigravida: Breanna Villagran is a 32 y/o female who is PPD#1 following at 40w. -Meeting all milestones -Vitals reviewed and WNl, Hemoglobin stable at 12.4 -A+/GBS negative/Rubella immune -Follow up at 6 weeks for follow up -Continue routine care -Planning to d/c later today Admission and Anticipated Discharge Date Admission Date: January 19, 2023 Supervising Physician Co-Signing Physician Notes Resident Physician Supervision Note: I interviewed and examined the patient. Discussed with Dr. Valle and agree with findings and plan as documented in the note. Any exceptions or clarifications are listed here: Doing well. Desires d/c later today. Instructions reviewed. Documented By: Shobha Hall MD, FACOG Maria Eugenia Villagran is a 32 y/o female who is PPD #1 following delivery at 40 weeks. She reports feeling well overall this morning. Notes abdominal cramping & pain well managed on analgesics. Voiding without issue. Tolerating meals overnight and able to ambulate some. Has some persistent lochia with some improvement this morning. Currently breast feeding. Review of Systems Constitutional: no fever, no chills and no sweats Respiratory: no cough, no dyspnea and no wheezing Cardiovascular: no chest pain, no palpitations and no calf pain Genitourinary: no dysuria Neurologic: no headache(s) Physical Exam Constitutional: WD/WN, vitals as above no acute distress Respiratory: no respiratory distress Auscultation: lungs clear to auscultation bilaterally; no rales, no rhonchi and no wheezes Cardiovascular: RRR, no murmur, no edema Extremities: no calf tenderness and no edema Negative Diego's sign bilaterally. Gastrointestinal (Abdomen): Inspection/Auscultation: normal bowel sounds Genitourinary: Uterine fundus firm, palpable below the umbilicus. Results & Data Vital Signs (Past 12 Hours) Vital Signs Temp Pulse Resp BP O2 Del Method 01/20/23 03:38 36.7 C 105 H 18 110/74 Room Air 01/19/23 23:05 36.6 C 94 H 18 128/80 Room Air 01/19/23 19:15 36.8 C 103 H 18 125/72 Room Air Resident Activity Tracking Resident Involvement: Resident Care Provided Care Provided: OB Delivery
[2023-01-20] MEDS: PRENATAL VITAMIN 1 TAB PO SCH (07:28)
[2023-01-20] MEDS: DOCUSATE SODIUM 100 MG CAP PO SCH (07:29)
== END 2023-01-20 11:45 | disposition home or self-care (01) | DRG 807 ==
LOC: OPB 00:49 → 4S1 00:50 → 4E2 08:06